=== PATIENT | male | born 1995 | race Caucasian/White ===

== ENCOUNTER 2019-12-06 02:52 | Emergency (ER) | payer OTHER ==
[2019-12-06] MEDS ORDERED: Bacitracin 1 PK ONE (02:59)
== END 2019-12-06 03:12 | disposition home or self-care (01) ==
LOC: ERS 02:52
DX: T22.211A Burn of second degree of right forearm, initial encounter (principal); T23.211A Burn of second degree of right thumb (nail), initial encounter; X02.0XXA Exposure to flames in controlled fire in building or structure, initial encounter
CPT/HCPCS: 16020

== ENCOUNTER 2021-11-29 07:52 | Outpatient (CLI) | payer BC | END 2021-11-29 07:53 | disposition home or self-care (01) | LOC: TBSIIMAG 07:52 | PROVIDERS: ATTEND Nurse Practitioner Family | DX: M51.16 Intervertebral disc disorders with radiculopathy, lumbar region (principal); M51.27 Other intervertebral disc displacement, lumbosacral region | CPT/HCPCS: 72148 ==

== ENCOUNTER 2022-01-13 08:55 | Outpatient (CLI) | payer BC ==
[2022-01-13 11:13] LABS: Hemoglobin 16.7 g/dL (13.5-17.5); Mean Corpuscular Hemoglobin 29.4 pg (27.0-33.0); Mean Platelet Volume 9.7 fl (7.4-10.4); Platelet Count 211 10x3/uL (150-450); RBC Distribution Width 12.8 % (11.5-14.5); Red Blood Cell (RBC) Count 5.68 10x6/uL (4.32-5.72); White Blood Cell (WBC) Count 5.9 10x3/uL (3.5-10.5)
[2022-01-13 11:20] LABS: PTT 25.2 sec (22.0-33.0); Prothrombin Time 10.4 sec (9.5-12.1)
[2022-01-13 11:44] LABS: Anion Gap 13 mmol/L (10-20); BUN (Urea Nitrogen) 23 mg/dL (8.9-20.6); Calc. Creatinine Clearance 0 mL/min (70-130); Calcium 9.3 mg/dL (7.8-10.44); Carbon Dioxide 28 mmol/L (22-29); Chloride 102 mmol/L (98-107); Glucose 96 mg/dL (70-105); Potassium 4.1 mmol/L (3.5-5.1); Sodium 139 mmol/L (136-145)
== END 2022-01-13 08:56 | disposition home or self-care (01) ==
LOC: LABBT 08:55
PROVIDERS: ATTEND Surgery
DX: Z01.818 Encounter for other preprocedural examination (principal); M51.16 Intervertebral disc disorders with radiculopathy, lumbar region
CPT/HCPCS: 80048; 85027; 85610; 85730; 93005; 93010

== ENCOUNTER 2022-01-17 08:01 | Observation (INO) | payer BC ==
[2022-01-09 12:00] VITALS: BMI 26.5
[2022-01-17] MEDS ORDERED: Thrombin 5000 UNITS/5 ML VIAL ONE (10:47)
[2022-01-17] MEDS ORDERED: Midazolam HCl 2 mg/2 ml Vial ONE (10:51)
[2022-01-17] MEDS ORDERED: Fentanyl 250 MCG/5 ML VIAL ONE ×2 (10:51→14:01)
[2022-01-17] MEDS ORDERED: ceFAZolin 2 GM/Dextrose 50 ML IVPB ONE (10:59)
[2022-01-17] MEDS ORDERED: Dexamethasone 20 MG/5 ML VIAL ONE (11:12)
[2022-01-17] MEDS ORDERED: PROPOFOL 200 MG/20 ML VIAL ONE (11:12)
[2022-01-17] MEDS ORDERED: Ondansetron PF 4 MG/2 ML Vial ONE (11:12)
[2022-01-17] MEDS ORDERED: Esmolol 100 MG/10 ML VIAL ONE (11:12)
[2022-01-17] MEDS ORDERED: Lidocaine 1% PF 5 ML VIAL ONE (11:12)
[2022-01-17] MEDS ORDERED: Rocuronium Bromide 10 MG/ML (10ML VIAL) ONE (11:12)
[2022-01-17] MEDS ORDERED: Glycopyrrolate 0.2 MG/ML 5 ML SYRINGE ONE (11:12)
[2022-01-17] MEDS ORDERED: Promethazine HCl 25 MG/ML VIAL IVPB PRN (13:50)
[2022-01-17] MEDS ORDERED: Ondansetron HCl/PF 4 MG/2 ML Vial IVP PRN (13:50)
[2022-01-17] MEDS ORDERED: Promethazine HCl 25 MG/ML VIAL IM PRN (13:50)
[2022-01-17] MEDS ORDERED: HYDROmorphone 0.5 MG/0.5 ML SYRINGE ONE ×4 (14:20→14:54)
[2022-01-17] MEDS ORDERED: traMADol HCl 50 MG TAB PO PRN (14:27)
[2022-01-17] MEDS ORDERED: Acetaminophen 325 MG TAB PO PRN (14:27)
[2022-01-17] MEDS ORDERED: Acetaminophen/Codeine 30-300mg Tablet PO PRN (14:27)
[2022-01-17] MEDS ORDERED: guaiFENesin ER 600 MG TAB PO PRN (14:32)
[2022-01-17] MEDS ORDERED: Morphine 4 MG/ML VIAL SLOW IVP PRN (14:37)
[2022-01-17] MEDS ORDERED: Promethazine HCl 25 MG/ML VIAL ONE (14:49)
[2022-01-17] MEDS: ceFAZolin 2 GM/Dextrose 50 ML 2 GM in Premix Bag 1 BAG IVPB SCH (18:19)
[2022-01-17] MEDS: HYDROcodone/Acetaminophen 7.5/325 mg Tablet PO PRN (18:20)
[2022-01-17] MEDS: Sodium Chloride 0.9% 1,000 ML IV SCH (18:21)
[2022-01-17] MEDS: tiZANidine HCl 4 MG TAB PO PRN (21:23)
[2022-01-18] MEDS: HYDROcodone/Acetaminophen 7.5/325 mg Tablet PO PRN ×2 (00:28→08:03)
[2022-01-18] MEDS: ceFAZolin 2 GM/Dextrose 50 ML 2 GM in Premix Bag 1 BAG IVPB SCH (03:45)
[2022-01-18] MEDS: tiZANidine HCl 4 MG TAB PO PRN (05:29)
[2022-01-18] MEDS: Sodium Chloride 0.9% 1,000 ML IV SCH (06:31)
[2022-01-18 09:13] VITALS: BP 108/56; TEMP 98.6
== END 2022-01-18 10:30 | disposition home or self-care (01) ==
LOC: SDC 08:01 → SURG A 14:32
PROVIDERS: ADMIT Surgery; ATTEND Surgery
PROC: 01NB0ZZ Release Lumbar Nerve, Open Approach (ICD-10-PCS; principal; 2022-01-17)
PROC: 0SB20ZZ Excision of Lumbar Vertebral Disc, Open Approach (ICD-10-PCS; 2022-01-17)
PROC: 0SB40ZZ Excision of Lumbosacral Disc, Open Approach (ICD-10-PCS; 2022-01-17)
DX: M51.16 Intervertebral disc disorders with radiculopathy, lumbar region (principal); M51.17 Intervertebral disc disorders with radiculopathy, lumbosacral region
CPT/HCPCS: 76000; 96365; 96375; G0378; J0690; J1100; J1170; J2250; J2270; J2405; J2550; J2704; J3010; J3370; J7050

== ENCOUNTER 2023-08-20 11:10 | Emergency (ER) | payer BC, OTHER ==
[2023-08-20 12:29] LABS: HBSAB Concentration 98.74 mIU/mL; Hep B Surf AB Reactive (NonReactive)
[2023-08-20 12:30] LABS: HIV (1/2) Antibody/Antigen Non-Reactive (NonReactive); HIV 1/2 INDEX 0.15 S/CO (<1.00); Hep C IgG Ab Non-Reactive S/CO (NonReactive); Hep C Index 0.08 S/CO (0-0.79)
== END 2023-08-20 11:36 | disposition home or self-care (01) ==
LOC: ERS 11:10
DX: Z77.21 Contact with and (suspected) exposure to potentially hazardous body fluids (principal)
CPT/HCPCS: 36415; 99283